=== PATIENT | female | born 1975 | race Caucasian/White ===

== ENCOUNTER 2018-08-27 17:10 | Emergency (ER) | payer BC ==
[~2018-08-27] VITALS: Ht 172.7 cm; Wt 95.0 kg
[2018-08-27] MEDS ORDERED: TOPI25CA PO (17:15)
[2018-08-27] MEDS ORDERED: SODIUM CHLORIDE 0.9% 1,000 ML IV ONE (17:32)
[2018-08-27] MEDS ORDERED: CLONAZEPAM 1MG TABLET PO ONE (17:45)
[2018-08-27] MEDS ORDERED: KETOROLAC 15MG/ML VIAL IV ONE (17:45)
[2018-08-27] MEDS ORDERED: TETANUS, DIPHTHERIA, PERTUSSIS VAC/PF 0.5ML (>7YR OLD) IM ONE (19:15)
[2018-08-27 19:16] VITALS: BP 112/67
== END 2018-08-27 19:29 | disposition home or self-care (01) ==
LOC: ER 17:10
DX: S00.81XA Abrasion of other part of head, initial encounter (principal); G40.909 Epilepsy, unspecified, not intractable, without status epilepticus; X58.XXXA Exposure to other specified factors, initial encounter; Y93.89 Activity, other specified; Y92.89 Other specified places as the place of occurrence of the external cause; Y99.8 Other external cause status
CPT/HCPCS: 96374; 99283; J1885; J7030